=== PATIENT | female | born 1980 | race African-American/Black ===

== ENCOUNTER 2016-11-09 02:31 | Emergency (ER) | payer OTHER ==
[~2016-11-09] VITALS: Ht 166.4 cm; Wt 81.8 kg
[~2016-11-09 02:31] MED LIST: ALBU8.5H2 INHALATION; MONT10TA20 PO; OMEP20TA86 PO; PRE20 PO
[2016-11-09 02:45] VITALS: BP 136/86; PULSE 94; RESP 16; O2SAT 96
--- NOTE | 2016-11-09 02:46 | ED.REPORT ---
HPI-Dyspnea / Wheezing Date of Service Nov 09, 2016 ED Provider: Royce Yoder MD The pt is a 35 y/o female presenting to the ED due to an asthma attack. She suspects the attack began due to her allergies while she was working outside earlier today. She has used her asthma medication but it did not help w/ her symptoms. Nursing Notes Stated Complaint: ASTHMA Chief Complaint: Respiratory Complaints Nursing Notes Reviewed: Yes Allergies: Coded Allergies: Penicillins (Verified Allergy, Severe, Rash, 11/09/16) amoxicillin (Verified Allergy, Severe, Rash, 11/09/16) Scheduled Albuterol HFA (Proair HFA) 8.5 Gm Hfa.aer.ad 2 PUFFS INHALATION Q4H Cetirizine HCl (Zyrtec) 10 Mg Capsule 10 MG PO DAILY Prednisone (PredniSONE) 20 Mg Tablet 20 MG PO TID General Time Seen by MD: 02:45 Chief Complaint Asthma attack Hx Obtained From: Patient Arrived By: Walk-in Sudden in Onset?: Yes Onset Occurred: 1 - 4 hours ago Symptom Duration: Since onset Recent Healthcare: No recent doctor visit, No recent hospitalization Similar Sx Previous: Yes Past Medical History Past Medical History Notes: PCP: Dr. Castillo, [facility] Past Medical History Iron deficient anemia Thyroid enlargement Reports: Asthma Past Surgical History None reported. Smoking History Former Smoker Social History Alcohol Use: "Social" Drug Use: Denies drug use Other Social History: Good social support Ambulatory Status Independent Review of Systems Respiratory: Reports: Wheezing Complete sys rev & neg: except as marked. Physical Exam Initial Vital Signs Vital Signs (First) Date Time Temp Pulse Resp B/P Pulse Ox O2 Delivery O2 Flow Rate FiO2 11/09/16 02:45 36.5 94 16 136/86 96 Room Air Initial VS: Reviewed, Vital signs abnormal Head / Eyes: Atraumatic, Normocephalic, PERRL ENT: Mucous membranes moist, Conjunctiva normal, No scleral icterus Extremities: Vascular intact, Neuro intact, No swelling, No tenderness Skin: Warm, Dry, No cyanosis Neurologic: Alert, Oriented, Nonfocal Psychiatric: Mood/affect normal, Behavior normal, Normal thought content General/Constitutional: Awake, Alert Neck: Atraumatic, Supple, Full range of motion Respiratory / Chest: Breath sounds = bilat Resp Distress / Stridor: Positive: Resp distress mild Wheezing / Retractions: Positive: Wheezing expiratory Good air movement Cardiovascular: Heart rate NL, Regular rhythm, Heart sounds NL Re-Eval/Medical Decision Med Decision/Clinical Course 35-year-old female with known history of asthma presents with an exacerbation related to seasonal allergies. She responded well to oral prednisone and nebulized albuterol and ipratropium. She will continue using her albuterol and was given a five-day course of prednisone. She was offered a steroid inhaler but declined. Source of Hx: Old records Re-Evaluation/Progress : Time of Eval: 05:03 Re-Evaluation/Progress Note: Pt rechecked. Pt's symptoms are much improved. Informed pt of plan for treatment. Pt understands and agrees with plan for treatment. F/U instructions and RTER warnings given. All questions addressed. Counseled Regarding: Diagnosis, Lab results, Need for follow-up, When/why to return to ED Discharge & Departure Impression: Primary Impression: Acute severe exacerbation of asthma with allergic rhinitis Disposition: Home Discharge Condition All VS Reviewed: Yes Condition: Stable Patient Instructions: Asthma (ED) Additional Instructions: Continue your albuterol inhaler with spacer. Prednisone 20 mg by mouth 3 times a day for 5 days, #15 prescribed. Call me at [phone] between the hours of 9 PM and 6 AM for the next couple of nights if you have any questions. Referrals: Milo Bragg DO (PCP) Scribe Attestation Portions of this note were transcribed by Ethan Renteria. I, Dr. Yoder personally performed the history, physical exam and medical decision-making; I reviewed and confirmed the accuracy of the information in the transcribed note. Signed by : Gianluca Raines, 11/09/16 and 0309. copies to: Milo Bragg Howard L MD Nov 09, 2016 02:46 Ethan Renteria Nov 09, 2016 03:29
[2016-11-09] MEDS ORDERED: CETI10CA PO (02:49)
[2016-11-09] MEDS ORDERED: predniSONE 20 mg Tablet PO ONE (03:25)
[2016-11-09] MEDS ORDERED: Albuterol-Ipratropium 3 mL Inhalation Solution NEB ONE (03:25)
[2016-11-09] MEDS ORDERED: Albuterol 2.5 mg/3 mL Inhalation Solution NEB ONE (03:25)
[2016-11-09] MEDS ORDERED: PRE20 PO (05:09)
[2016-11-09 05:25] VITALS: BP 134/74; PULSE 105; RESP 16; O2SAT 98
== END 2016-11-09 05:26 | disposition home or self-care (01) ==
LOC: SED 02:31
DX: J45.901 Unspecified asthma with (acute) exacerbation (principal); Z87.891 Personal history of nicotine dependence; Z88.0 Allergy status to penicillin; Z79.899 Other long term (current) drug therapy
CPT/HCPCS: 99284; J7613; J7620